=== PATIENT | female | born 1970 | race Caucasian/White ===

== ENCOUNTER → 2016-10-16 | Outpatient (CLI) | payer MEDICAID ==
[~2016-10-16] MED LIST: BENTYL GENERIC10 MG PO; BUPROPION HCL100 MG PO; CLONIDINE 0.2M0.2 MG PO; GABAPENTIN300 MG PO; LYRICA50 MG PO; METOCLOPRAMIDE10 M2 PO; MOBIC7.5 MG PO; MULTI VITAMINS1 TA1 PO; ONDANSETRON HYDR8 MG PO; SERTRALINE 100100 MG PO; VITAMIN B-1100 MG PO
--- NOTE | 2016-10-16 15:49 | RADIOLOGY REPORT PS360 ---
US CHEST CLINICAL INDICATION: LEFT LATERAL SOFT TISSUE MASS, PAIN, history of breast cancer with surgery on the left ORDERING PHYSICIAN: LISA JUAREZ PATIENT AGE: 45 years COMPARISON: None FINDINGS: There is heterogeneous echogenicity in the subcutaneous tissues consistent with underlying lipomatous tissue. A discrete mass is not evident by ultrasound. There is an oval area of isoechogenicity measuring 2.6 cm just lateral to the surgical scar suggesting underlying lipoma. No cystic lesions. No abscess no obvious enlarged lymph nodes. IMPRESSION: Possible lipoma lateral to the surgical scar the left breast. Follow-up is recommended considering the patient's history of breast cancer. Consider chest CT for more thorough evaluation.
== END ==
LOC: RAD 10-15 14:30
DX: M79.622 Pain in left upper arm (principal)